=== PATIENT | male | born 1980 | race Hispanic/Latino ===

== ENCOUNTER 2017-02-13 20:15 | Emergency (ER) | payer MEDICAID, OTHER ==
[2017-02-13 20:15] VITALS: BMI 31.3
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
[2017-02-13] MEDS ORDERED: Lidocaine 5% Patch TD STA (21:39)
[2017-02-13 22:26] LABS: RBC URINE 13 /hpf (0-3); URINE BILIRUBIN NEGATIVE (NEGATIVE); URINE BLOOD 1+ (NEGATIVE); URINE COLOR Yellow (YELLOW); URINE GLUCOSE (UA) NORMAL (Normal); URINE KETONE NEGATIVE (NEGATIVE); URINE LEUKOCYTE ESTERASE NEG Leu/uL (Negative); URINE PROTEIN NEGATIVE (NEGATIVE); URINE UROBILINOGEN NORMAL mg/dL (0.2-1.0); WBC URINE 1 /hpf (0-5)
[2017-02-13 23:06] VITALS: BP 127/83; PULSE 99; RESP 20; TEMP 98.3
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
[2017-02-18 11:31] VITALS: O2SAT 98
== END 2017-02-13 23:06 | disposition home or self-care (01) ==
LOC: C.ER 20:15
DX: S09.90XA Unspecified injury of head, initial encounter (principal); Y04.0XXA Assault by unarmed brawl or fight, initial encounter; M62.830 Muscle spasm of back
CPT/HCPCS: 70450; 72100; 81001; 90471; 90715; 96372; 99284; J1885